=== PATIENT | female | born 1995 | race Native Hawaiian/Other Pacific Islander ===

== ENCOUNTER 2018-09-07 09:32 | Emergency (ER) | payer OTHER ==
[2018-09-07 09:43] VITALS: RESP 16; O2SAT 100
--- NOTE | 2018-09-07 10:18 | ED PDOC ---
HPI: General Adult Time Seen by Provider: 09/07/18 10:11 Chief Complaint (Nursing): Trauma Chief Complaint (Provider): facial/head injury History Per: Patient Additional Complaint(s): 23-year-old female presents with lower lip laceration and head injury status post a 25 pound medicine ball falling on her face earlier today while she was at the gym. Patient states after the ball fell on her she fell backwards hitting the back of her head against the ground. She did not sustain loss of consciousness but presents with headache and pressure sensation to back of head associated with dizziness and nausea. Patient went to urgent care and was told to come to ED. PMD: none Past Medical History Reviewed: Historical Data, Nursing Documentation, Vital Signs Vital Signs: Last Vital Signs Temp 97.6 F 09/07/18 09:39 Pulse 66 09/07/18 09:39 Resp 16 09/07/18 09:39 BP 142/76 09/07/18 09:39 Pulse Ox 100 09/07/18 09:39 - Medical History PMH: Asthma - Surgical History Surgical History: No Surg Hx - Family History Family History: States: No Known Family Hx - Living Arrangements Living Arrangements: With Family - Social History Current smoker - smoking cessation education provided: No Alcohol: Social Drugs: Denies - Immunization History Hx Tetanus Toxoid Vaccination: Yes - Home Medications Home Medications: Ambulatory Orders Medication Instructions Recorded Amoxicillin/Clavulanate [Augmentin 1 tab PO BID #14 tab 09/07/18 875 MG-125 MG] Cyclobenzaprine [Cyclobenzaprine 10 mg PO TID PRN #20 tab 09/07/18 HCl] Ibuprofen [Motrin Tab] 800 mg PO Q8 PRN #20 tab 09/07/18 - Allergies Allergies/Adverse Reactions: Allergies Allergy/AdvReac Type Severity Reaction Status Date / Time macadamia nut oil Allergy ANAPHYLAXIS Verified 09/07/18 09:41 Penicillins Allergy RASH Verified 09/07/18 09:41 Review of Systems ROS Statement: Except As Marked, All Systems Reviewed And Found Negative ENT: Positive for: Other (lower lip laceration) Neurological: Positive for: Dizziness, Other (head injury with no LOC) Physical Exam - Reviewed Nursing Documentation Reviewed: Yes Vital Signs Reviewed: Yes - Physical Exam Appears: Positive for: Well, Non-toxic, No Acute Distress Head Exam: Positive for: ATRAUMATIC, NORMAL INSPECTION (tenderness to occipital region with no palpable contusions or skull deformities) Skin: Positive for: Normal Color. Negative for: Rash Eye Exam: Positive for: Normal appearance ENT: Positive for: Other (dentition intact with no loose teeth or fractured teeth, there is a 2 cm superficial flap laceration noted to mucosal surface of lower lip not involving vermilion border. This is not a through and through laceration, no lacerations noted to face, minimal active bleeding, no foreign body, decreased range of motion of lower mandible due to pain, no bony deformity noted) Neck: Positive for: Normal, Painless ROM Cardiovascular/Chest: Positive for: Chest Non Tender Respiratory: Positive for: Normal Breath Sounds. Negative for: Respiratory Distress Extremity: Positive for: Normal ROM Neurologic/Psych: Positive for: Alert, carpet journeyman II-XII (grossly intact), Oriented, Gait (steady). Negative for: Aphasia, Facial Droop - Laboratory Results Urine POC: Negative - ECG O2 Sat by Pulse Oximetry: 100 Pulse Ox Interpretation: Normal - Other Rad CT head X-Ray: Read By Radiologist X-Ray Interpretation: no intracranial bleeding CT facial bones X-Ray Interpretation: see below Medical Decision Making Medical Decision Makin23 year old with facial and head injury Plan: PO tylenol CT head and facial bones CT facial bones: FINDINGS: NASAL BONES: Unremarkable. ORBITS: Orbits and contents unremarkable. Globes intact and lenses appropriately located. There are no retrobulbar hemorrhages or collections. Optic nerves and extraocular musculature intact. PARANASAL SINUSES/ MASTOIDS: Mild mucosal thickening both maxillary antra left greater than right. Both ostiomeatal complexes appear just barely occluded. In addition, there is mild mucosal thickening in multiple ethmoid air cells of. No fluid levels seen to suggest acute hemorrhage or sinusitis. The nasal mucosa is hypertrophic bilaterally possibly due to recent trauma with secondary reactive edema however the possibility of nasal polyps not excluded. Questionable nondisplaced fracture of the mid nasal septum. There also small left-sided septal bone spur. MAXILLA: Maxilla including the anterior maxillary spine intact. MANDIBLE/ TEMPOROMANDIBULAR JOINTS: Unremarkable. SKULL BASE: Unremarkable. TEMPORAL BONES: Middle ears and mastoid grossly unremarkable. OTHER FINDINGS: Questionable mild soft tissue swelling lower and to a lesser degree upper lips. IMPRESSION: Questionable nondisplaced fracture mid nasal septum. Small left-sided septal bone spur. Hypertrophic changes of the nasal mucosa likely reactive due to recent trauma however possibility of nasal polyps not excluded. Clinical correlation recommended. Questionable mild soft tissue swelling lower and to a lesser degree upper lips. Patient is aware of CT results, all questions answered. Laceration involves mucosal surface of lower lip only and is superficial. No sutures indicated. Patient was given wound care instructions. Prescription for Augmentin and Motrin provided. Patient was referred to ear, nose and throat specialist for follow up. Disposition - Clinical Impression Clinical Impression: Lip laceration, Facial contusion, Head injury - Patient ED Disposition Is Patient to be Admitted: No Counseled Patient/Family Regarding: Studies Performed, Diagnosis, Need For Followup, Rx Given - Disposition Referrals: Luis Daniel Valle MD [Staff Provider] - Disposition: Routine/Home Disposition Time: 12:19 Condition: STABLE Additional Instructions: Ice affected area as often as possible. Take prescription meds as directed. Follow-up with ENT in 2-3 days. Prescriptions: Amoxicillin/Clavulanate [Augmentin 875 MG-125 MG] 1 tab PO BID #14 tab Cyclobenzaprine [Cyclobenzaprine HCl] 10 mg PO TID PRN #20 tab PRN Reason: Muscle Spasm Ibuprofen [Motrin Tab] 800 mg PO Q8 PRN #20 tab PRN Reason: Pain, Moderate (4-7) Instructions: Closed Head Injury, Contusion (DC), Wound Care (DC) Forms: [employer] (Lao)
--- NOTE | 2018-09-07 11:23 | CT ---
Date of service: 09/07/2018 PROCEDURE: CT MAXILLOFACIAL BONES WITHOUT CONTRAST HISTORY: Trauma COMPARISON: None available. TECHNIQUE: Contiguous axial CT images of the maxillofacial bones were obtained. Coronal and sagittal reformats were generated. Radiation dose: Total exam DLP = 1525.63 mGy-cm. This CT exam was performed using one or more of the following dose reduction techniques: Automated exposure control, adjustment of the mA and/or kV according to patient size, and/or use of iterative reconstruction technique. FINDINGS: NASAL BONES: Unremarkable. ORBITS: Orbits and contents unremarkable. Globes intact and lenses appropriately located. There are no retrobulbar hemorrhages or collections. Optic nerves and extraocular musculature intact.. PARANASAL SINUSES/ MASTOIDS: Mild mucosal thickening both maxillary antra left greater than right. Both ostiomeatal complexes appear just barely occluded. In addition, there is mild mucosal thickening in multiple ethmoid air cells of. No fluid levels seen to suggest acute hemorrhage or sinusitis. The nasal mucosa is hypertrophic bilaterally possibly due to recent trauma with secondary reactive edema however the possibility of nasal polyps not excluded... Questionable nondisplaced fracture of the mid nasal septum. There also small left-sided septal bone spur. MAXILLA: Maxilla including the anterior maxillary spine intact. MANDIBLE/ TEMPOROMANDIBULAR JOINTS: Unremarkable. SKULL BASE: Unremarkable. TEMPORAL BONES: Middle ears and mastoid grossly unremarkable. OTHER FINDINGS: Questionable mild soft tissue swelling lower and to a lesser degree upper lips. IMPRESSION: Questionable nondisplaced fracture mid nasal septum. Small left-sided septal bone spur. Hypertrophic changes of the nasal mucosa likely reactive due to recent trauma however possibility of nasal polyps not excluded. Clinical correlation recommended. Questionable mild soft tissue swelling lower and to a lesser degree upper lips.
--- NOTE | 2018-09-07 11:55 | CT ---
Date of service: 09/07/2018 PROCEDURE: CT HEAD WITHOUT CONTRAST. HISTORY: Trauma COMPARISON: Correlation made with concurrent CT scan of the maxillofacial skeleton TECHNIQUE: Axial computed tomography images were obtained through the head/brain without intravenous contrast. Radiation dose: Total exam DLP = 1525.63 mGy-cm. This CT exam was performed using one or more of the following dose reduction techniques: Automated exposure control, adjustment of the mA and/or kV according to patient size, and/or use of iterative reconstruction technique. FINDINGS: HEMORRHAGE: No intracranial hemorrhage. BRAIN: No mass effect or edema. No atrophy or chronic microvascular ischemic changes. VENTRICLES: Unremarkable. No hydrocephalus. CALVARIUM: Unremarkable. PARANASAL SINUSES: Mild mucosal thickening again noted within both maxillary antra and multiple ethmoid air cells MASTOID AIR CELLS: Unremarkable as visualized. No inflammatory changes. OTHER FINDINGS: None. IMPRESSION: No acute intracranial hemorrhage. Mild mucosal thickening present within both maxillary antra and multiple ethmoid air cells.
[2018-09-07 13:25] VITALS: BP 130/70; PULSE 70; TEMP 98
== END 2018-09-07 13:00 | disposition home or self-care (01) ==
LOC: H.ER 09:32
DX: S01.511A Laceration without foreign body of lip, initial encounter (principal); S00.83XA Contusion of other part of head, initial encounter; W22.8XXA Striking against or struck by other objects, initial encounter; Y92.89 Other specified places as the place of occurrence of the external cause; Z88.0 Allergy status to penicillin